=== PATIENT | female | born 1945 | race Hispanic/Latino ===

== ENCOUNTER 2018-03-28 17:20 | Observation (INO) | payer MEDICARE ==
[2018-03-28 17:31] VITALS: BMI 35.4
[2018-03-28] MEDS ORDERED: Sodium Chloride 0.9% 1,000 ML IV SCH (17:45)
--- NOTE | 2018-03-28 17:56 | CT ---
PROCEDURE: CT HEAD WITHOUT CONTRAST. HISTORY: Code Stroke COMPARISON: None available. TECHNIQUE: Axial computed tomography images were obtained through the head/brain without intravenous contrast. Radiation dose: Total exam DLP = 852.48 mGy-cm. This CT exam was performed using one or more of the following dose reduction techniques: Automated exposure control, adjustment of the mA and/or kV according to patient size, and/or use of iterative reconstruction technique. FINDINGS: HEMORRHAGE: No intracranial hemorrhage. BRAIN: Good corticomedullary differentiation is seen. Diffuse expansion of the ventriculosulcal and cisternal spaces is appreciated with white matter lucency compatible with diffuse cerebral atrophy and chronic microangiopathy. No suspicious extra-axial fluid collection is identified and the midline brain anatomy appears grossly nonfocal as imaged. There is no mass effect throughout. VENTRICLES: Unremarkable. No hydrocephalus. CALVARIUM: Unremarkable. PARANASAL SINUSES: Unremarkable as visualized. No significant inflammatory changes. MASTOID AIR CELLS: Unremarkable as visualized. No inflammatory changes. OTHER FINDINGS: None. IMPRESSION: Age related neuro degenerative changes are appreciated which appear age-appropriate at this time. No acute intracranial findings by standard CT criteria. Follow-up CT or MRI are advised as clinically warranted. Findings discussed Dr. Johnson on 03/28/2018, 5:52 p.m. with written down and read back verification.
[2018-03-28 18:02] LABS: BASO # 0.01 K/mm3 (0.0-2.0); BASO % 0.2 % (0.0-3.0); EOS % 0.6 % (1.5-5.0); GRAN % 61.7 % (50.0-68.0); HEMOGLOBIN 13.7 g/dL (12.0-16.0); LYMPH % 30.4 % (22.0-35.0); MEAN CELL VOLUME 87.1 fl (80.0-105.0); MEAN CORPUSCULAR HEMOGLOBIN 29.9 pg (25.0-35.0); MEAN CORPUSCULAR HGB CONC 34.3 g/dl (31.0-37.0); MEAN PLATELET VOLUME 9.7 fl (7.0-11.0); MONO # 0.5 (0.1-0.6); MONO % 7.1 % (1.0-6.0); RBC 4.58 10^6/uL (3.5-6.1); RED CELL DISTRIBUTION WIDTH 12.9 % (11.5-14.5); WHITE BLOOD COUNT 6.5 10^3/ul (4.5-11.0)
[2018-03-28 18:09] LABS: ALB/GLOB RATIO 1.4 (1.1-1.8); ALBUMIN 4.5 g/dL (3.0-4.8); ALT/SGPT 20 U/L (7-56); AST/SGOT 24 U/L (14-36); BLOOD UREA NITROGEN 18 mg/dL (7-21); CALCIUM 11.2 mg/dL (8.4-10.5); GFR AFRICAN-AMERICAN > 60; GFR NON-AFRICAN AMERICAN > 60; HDL CHOLESTEROL 61 mg/dL (29-60)
[2018-03-28 18:10] LABS: INR 0.96 (0.93-1.08); PARTIAL THROMBOPLASTIN TIME 28.5 Seconds (25.1-36.5); PROTHROMBIN TIME 10.9 SECONDS (9.4-12.5)
[2018-03-28 18:20] LABS: LDL CHOLESTEROL 133 mg/dL (0-129)
[2018-03-28 18:23] LABS: TROPONIN I < 0.01 ng/mL
--- NOTE | 2018-03-28 21:07 | ED PDOC ---
Arrival/HPI - General Chief Complaint: Weakness/Neurological Deficit Time Seen by Provider: 03/28/18 17:30 Historian: Patient - History of Present Illness Narrative History of Present Illness (Text): 03/28/18 17:30 A 72 year old female presents to the emergency department for evaluation of slight slurred speech and tongue and jaw numbness. Patient reported to have noticed slight slurred of speech at 16:00 this afternoon. Patient had a hard time finding her words. Patient noticed tongue and jaw were numb. Patient with residual numbness of tongue and jaw in the emergency department. Patient denies any chest pain, shortness of breath, fever, chills, cough, weakness in extremities or any other complaints at this time. Symptom Onset: Sudden Symptom Course: Unchanged Activities at Onset: Rest Context: Home Past Medical History - Provider Review Nursing Documentation Reviewed: Yes - Infectious Disease Hx of Infectious Diseases: None - Neurological Hx Transient Ischemic Attacks (TIA): Yes - Psychiatric Hx Anxiety: Yes Hx Substance Use: No - Anesthesia Hx Anesthesia: No Family/Social History - Physician Review Nursing Documentation Reviewed: Yes Family/Social History: No Known Family HX Smoking Status: Never Smoked Hx Alcohol Use: No Hx Substance Use: No Allergies/Home Meds Allergies/Adverse Reactions: Allergies No Known Allergies Allergy (Verified 03/28/18 17:31) Home Medications: Home Meds Medication Instructions Recorded Confirmed Lorazepam [Ativan] 1 mg PO TID 03/28/18 03/28/18 Mirtazapine [Remeron] 30 mg PO HS 03/28/18 03/28/18 Risperidone [Risperdal] 1 mg PO HS 03/28/18 03/28/18 Review of Systems - Physician Review All systems were reviewed & negative as marked: Yes - Review of Systems Constitutional: absent: Fevers, Other (chills) Respiratory: absent: SOB, Cough Cardiovascular: absent: Chest Pain Physical Exam Vital Signs Reviewed: Yes Vital Signs Temp Pulse Pulse Resp BP Pulse Ox 03/28/18 21:19 98 F 77 18 170/86 H 99 03/28/18 21:10 98.4 F 77 77 18 161/94 H 03/28/18 18:49 98.4 F 77 18 161/94 H 100 03/28/18 18:45 98.5 F 77 18 161/94 H 100 03/28/18 18:30 98.4 F 78 18 146/83 99 03/28/18 18:15 98.4 F 85 18 156/100 H 100 03/28/18 18:00 98.4 F 80 18 151/82 H 100 Temperature: Afebrile Blood Pressure: Normal Pulse: Regular Respiratory Rate: Normal Appearance: Positive for: Well-Appearing, Non-Toxic, Comfortable Pain Distress: None Mental Status: Positive for: Alert and Oriented X 3 Finger Stick Blood Glucose: 99 - Systems Exam Head: Present: Atraumatic, Normocephalic Pupils: Present: PERRL Extroacular Muscles: Present: EOMI Conjunctiva: Present: Normal Mouth: Present: Moist Mucous Membranes Neck: Present: Normal Range of Motion Respiratory/Chest: Present: Clear to Auscultation, Good Air Exchange. No: Respiratory Distress, Accessory Muscle Use Cardiovascular: Present: Regular Rate and Rhythm, Normal S1, S2. No: Murmurs Abdomen: No: Tenderness, Distention, Peritoneal Signs Back: Present: Normal Inspection Upper Extremity: Present: Normal Inspection. No: Cyanosis, Edema Lower Extremity: Present: Normal Inspection. No: Edema Neurological: Present: GCS=15, CN II-XII Intact, Speech Normal Skin: Present: Warm, Dry, Normal Color. No: Rashes Psychiatric: Present: Alert, Oriented x 3, Normal Insight, Normal Concentration Medical Decision Making ED Course and Treatment: 03/28/18 17:30 Impression: A 72 year old female with tongue and jaw numbness. Plan: -- CT head -- EKG -- Chest X-ray -- labs -- IV fluids -- Reassess and disposition Progress Notes: EKG: Ordered, reviewed, and independently interpreted the EKG. Rate : 81 BPM Rhythm : NSR Interpretation : Nornal intervals, normal axis 03/28/18 17:58 CT HEAD WITHOUT CONTRAST Creator : Nura Gonsales MD FINDINGS: HEMORRHAGE: No intracranial hemorrhage. BRAIN: Good corticomedullary differentiation is seen. Diffuse expansion of the ventriculosulcal and cisternal spaces is appreciated with white matter lucency compatible with diffuse cerebral atrophy and chronic microangiopathy. No suspicious extra-axial fluid collection is identified and the midline brain anatomy appears grossly nonfocal as imaged. There is no mass effect throughout. VENTRICLES: Unremarkable. No hydrocephalus. CALVARIUM: Unremarkable. PARANASAL SINUSES: Unremarkable as visualized. No significant inflammatory changes. MASTOID AIR CELLS: Unremarkable as visualized. No inflammatory changes. IMPRESSION: Age related neuro degenerative changes are appreciated which appear age-appropriate at this time. No acute intracranial findings by standard CT criteria. Follow-up CT or MRI are advised as clinically warranted. Findings discussed Dr. Johnson on 03/28/2018, 5:52 p.m. with written down and read back verification. 03/28/18 17:[address] Castellon upon stroke alert to review case. Spoke with Dr. Castellon, who will admit patient to Telemetry. Aspirin 325 was given. 03/28/18 17:35 Code stroke called. - Lab Interpretations Lab Results: 03/28/18 17:40 03/28/18 17:40 Lab Results 03/28/18 17:40: Hemoglobin A1c 5.6 03/28/18 17:40: Sodium 142, Potassium 3.9, Chloride 104, Carbon Dioxide 25, Anion Gap 17, BUN 18, Creatinine 0.8, Est GFR ( Amer) > 60, Est GFR (Non- Af Amer) > 60, Random Glucose 126 H, Calcium 11.2 H, Total Bilirubin 0.4, AST 24 , ALT 20, Alkaline Phosphatase 68, Troponin I < 0.01, Total Protein 7.7, Albumin 4.5, Globulin 3.2, Albumin/Globulin Ratio 1.4, Triglycerides 139, Cholesterol 236 H, LDL Cholesterol Direct 133 H, HDL Cholesterol 61 H 03/28/18 17:40: PT 10.9, INR 0.96, APTT 28.5 03/28/18 17:40: WBC 6.5, RBC 4.58, Hgb 13.7, Hct 39.9, MCV 87.1, MCH 29.9, MCHC 34.3, RDW 12.9, Plt Count 146, MPV 9.7, Gran % 61.7, Lymph % (Auto) 30.4, Coffey % (Auto) 7.1 H, Eos % (Auto) 0.6 L, Baso % (Auto) 0.2, Gran # 4.00, Lymph # ( Auto) 2.0, Coffey # (Auto) 0.5, Eos # (Auto) 0.0, Baso # (Auto) 0.01 03/28/18 17:35: Blood Type A POSITIVE, Antibody Screen Negative, BBK History Checked No verified bt I have reviewed the lab results: Yes - RAD Interpretation Radiology Orders: 03/28/18 17:34 HEAD W/O (CODE STROKE) [CT] Stat CHEST PORTABLE [RAD] Stat - EKG Interpretation Interpreted by ED Physician: Yes Type: 12 lead EKG - Medication Orders Current Medication Orders: Sodium Chloride (Sodium Chloride 0.45%) 1,000 mls @ 40 mls/hr IV .Q24H AGUILA Insulin Human Regular (Humulin R Low) 0 units SC ACHS AGUILA PRN Reason: Protocol Lorazepam (Ativan) 1 mg PO TID AGUILA PRN Reason: Protocol Mirtazapine (Remeron) 30 mg PO HS AGUILA Risperidone (Risperdal Tab) 1 mg PO HS AGUILA PRN Reason: Protocol Discontinued Medications Amlodipine Besylate (Norvasc) 5 mg PO STAT STA Stop: 03/28/18 21:30 Aspirin (Aspirin) 325 mg PO STAT STA Stop: 03/28/18 18:55 Last Admin: 03/28/18 19:00 Dose: 325 mg Sodium Chloride (Sodium Chloride 0.9%) 1,000 mls @ 100 mls/hr IV .Q10H AGUILA Last Admin: 03/28/18 18:00 Dose: 100 mls/hr eMAR Start Stop Document 03/28/18 18:00 LA (Rec: 03/28/18 18:19 LA [id number]) Intravenous Solution Start Date 03/28/18 Start Time 18:00 Pneumococcal Polyvalent Vaccine (Pneumovax 23 Vaccine) 0.5 ml IM .ONCE ONE Stop: 03/28/18 21:42 NIHSS Scale ([place]) Time Performed: 17:35 - How Severe is the Stoke Baseline Level of Consciousness: 0=Alert LOC to Questions: 0=Both comments correct LOC to commands: 0=Obeys both correctly Best Gaze: 0=Normal Visual: 0=No visual loss Facial: 1=Minor asymmetry Motor Arm - Left: 0=No drift Motor Arm - Right: 0=No drift Motor Leg - Left: 0=No drift Motor Leg - Right: 0=No drift Limb Ataxia: 0=Absent Sensory: 1=Mild to moderate loss Best Language: 0=No aphasia Dysarthia: 0=Normal articulation Extinction & Inattention (Neglect): 0=Normal, no object Score: 2 Risk Level: Minor Stroke Risk rTPA Inclusion/Exclusion - Refusal of Treatment Patient Refused Treatment: No - Inclusion Criteria for Altepase Patient is 18 years or Older: Yes The Clinical Diagnosis of Ischemic Stroke That is Causing a Potentially Disabling Neurological Deficit: No Time of Onset is Well Established to be Less Than 270 Minute Before Treatment Would Begin: Yes Risk/Benefit Discussed With Patient/Family Member Present: Yes - Warning to TPA With Conditions Condition: Stroke Serevity Too Mild, Rapid Improvement - Scribe Statement The provider has reviewed the documentation as recorded by the Joseph Stover Provider Scribe Attestation: All medical record entries made by the Joseph were at my direction and personally dictated by me. I have reviewed the chart and agree that the record accurately reflects my personal performance of the history, physical exam, medical decision making, and the department course for this patient. I have also personally directed, reviewed, and agree with the discharge instructions and disposition. Disposition/Present on Arrival - Present on Arrival Any Indicators Present on Arrival: No History of DVT/PE: No History of Uncontrolled Diabetes: No Urinary Catheter: No History of Decub. Ulcer: No History Surgical Site Infection Following: None - Disposition Have Diagnosis and Disposition been Completed?: Yes Diagnosis: TIA (transient ischemic attack) Disposition: HOSPITALIZED Disposition Time: 18:30 Condition: GUARDED ED Critical Care Documentation - Critical Care Total Time (mins): 60 Documented critical care: time excludes all time spent performing seperately billable procedures.
[2018-03-28] MEDS ORDERED: Sodium Chloride 0.45% 1,000 ML IV SCH (21:30)
[2018-03-28] MEDS ORDERED: Pneumococcal 23-Valent Vaccine IM ONE (21:41)
[2018-03-28] MEDS: Insulin Reg-LOW-Coverage SC SCH (22:52)
[2018-03-29 06:47] VITALS: BP 137/68; RESP 20; TEMP 97.7; O2SAT 95
[2018-03-29 07:21] LABS: HEMOGLOBIN 12.1 g/dL (12.0-16.0); MEAN CORPUSCULAR HEMOGLOBIN 29.1 pg (25.0-35.0); MEAN CORPUSCULAR HGB CONC 33.1 g/dl (31.0-37.0); MEAN PLATELET VOLUME 9.8 fl (7.0-11.0); RBC 4.16 10^6/uL (3.5-6.1); RED CELL DISTRIBUTION WIDTH 13.1 % (11.5-14.5); WHITE BLOOD COUNT 4.7 10^3/ul (4.5-11.0)
[2018-03-29 07:36] LABS: ALBUMIN 3.7 g/dL (3.0-4.8); BLOOD UREA NITROGEN 15 mg/dL (7-21); CALCIUM 10.3 mg/dL (8.4-10.5); GFR AFRICAN-AMERICAN > 60; GFR NON-AFRICAN AMERICAN > 60
[2018-03-29 07:37] LABS: ALB/GLOB RATIO 1.3 (1.1-1.8); ALT/SGPT 22 U/L (7-56); AST/SGOT 24 U/L (14-36)
--- NOTE | 2018-03-29 08:09 | CP.PCM.CON ---
History of Present Illness - History of Present Illness History of Present Illness: Neuro Consult note for Dr. Castellno 72yo female PMHx TIA 8 years ago, hyperlipidemia, depression, and anxiety presents to [facility] ED with complained of slurred speech and inability to speak for 2 hours. Patient reports she was at home and around 4pm she noticed she was unable to speak well. She also had associated pins and needles in her hands and feet and felt generally weak. She denied any LOC, trauma, fall, hitting her head , convulsions, farhana vu/strange smell prior to the episode. She reported when she came to the ER her symptoms had resolved although she still felt tired. Patient reports she had had a similar episode before 8-9 years ago where she could only see through the "middle of her eyes" and was unable to see anything in her periphery. She had an associated excruciating headache with this and the episode last 10 minutes on the day and the next day. Patient went to see an opthamologist who immediately sent her to [facility] where she was worked up and deemed to have a "mini stroke" and "plaques in her neck." Patient was started on plavix which she took for 7 years and discontinued last year and she was prescribed a statin but stopped taking it because of her nerves. This morning patient was seen and examined at bedside. Nursing reported no acute events overnight. She reported her speech was back to baseline and she was eating breakfast this AM. Patient denied acute complaints of headache, dizziness, blurry vision, ringing of the ears, chest pain, palpitations, SOB, cough, abd pain, nausea, vomiting, bowel/bladder complaints, pain/swelling in her legs bilaterally. She continues to complain of some paresthesias in her hands b/l but overall feels better. PMHx: TIA 8 years ago, HLD noncompliant with meds, depression, and anxiety PSurgHx: hysterectomy at 31 yo Meds: pls see chart ALL: sulfa drugs FamHx: mother had a "massive CVA" at 83yo and breast ca; sister has ovarian ca SocHx: denies tobacco use, EtOH, drug use; lives with daughter's family and ambulates independently; retired but used to work in [employer] Review of Systems - Review of Systems All systems: reviewed and no additional remarkable complaints except Review of Systems: as per HPI Past Patient History - Infectious Disease Hx of Infectious Diseases: None - Past Social History Smoking Status: Never Smoked - CARDIAC Hx Cardiac Disorders: Yes Hx Hypercholesterolemia: Yes Other/Comment: abnormal ekg had stress test negative 2017 - PULMONARY Hx Respiratory Disorders: No - NEUROLOGICAL Hx Transient Ischemic Attacks (TIA): Yes - HEENT Hx HEENT Problems: No - HEMATOLOGICAL/ONCOLOGICAL Hx Hepatitis A: Yes - INTEGUMENTARY Hx Dermatological Problems: No - MUSCULOSKELETAL/RHEUMATOLOGICAL Hx Musculoskeletal Disorders: Yes Hx Arthritis: Yes (knees) Hx Falls: No - GASTROINTESTINAL Hx Gastrointestinal Disorders: Yes (obese) Hx Diverticulitis: Yes - GENITOURINARY/GYNECOLOGICAL Hx Urinary Tract Infection: Yes - PSYCHIATRIC Hx Anxiety: Yes Hx Substance Use: No - SURGICAL HISTORY Hx Surgeries: No - ANESTHESIA Hx Anesthesia: No Meds Allergies/Adverse Reactions: Allergies Allergy/AdvReac Type Severity Reaction Status Date / Time No Known Allergies Allergy Verified 03/28/18 17:31 - Medications Medications: Current Medications Sodium Chloride (Sodium Chloride 0.45%) 1,000 mls @ 40 mls/hr IV .Q24H AGUILA Last Admin: 03/28/18 23:28 Dose: 40 mls/hr Insulin Human Regular (Humulin R Low) 0 units SC ACHS AGUILA PRN Reason: Protocol Last Admin: 03/28/18 22:52 Dose: Not Given Lorazepam (Ativan) 1 mg PO TID AGUILA PRN Reason: Protocol Mirtazapine (Remeron) 30 mg PO HS AGUILA Last Admin: 03/28/18 22:52 Dose: 30 mg Risperidone (Risperdal Tab) 1 mg PO HS AGUILA PRN Reason: Protocol Last Admin: 03/28/18 22:52 Dose: 1 mg Physical Exam - Constitutional Appears: Non-toxic, No Acute Distress - Head Exam Head Exam: ATRAUMATIC, NORMAL INSPECTION, NORMOCEPHALIC - Eye Exam Eye Exam: EOMI, Normal appearance, PERRL. absent: Conjunctival injection, Scleral icterus Pupil Exam: NORMAL ACCOMODATION - ENT Exam ENT Exam: Mucous Membranes Moist - Respiratory Exam Respiratory Exam: NORMAL BREATHING PATTERN. absent: Accessory Muscle Use, Respiratory Distress - Cardiovascular Exam Cardiovascular Exam: +S1, +S2 - Rectal Exam Rectal Exam: Deferred - Extremities Exam Extremities exam: Positive for: normal capillary refill, normal inspection, pedal pulses present. Negative for: pedal edema, tenderness - Neurological Exam Neurological exam: Alert, CN II-XII Intact, Oriented x3 - Expanded Neurological Exam Expanded Neurological exam: Protecting the Airway Patient oriented to: person, place, time Speech: Fluid Speech Cranial nerves: EOM's Intact: Normal, Facial Palsey w/Forehead Movement: Normal , Facial Palsey w/o Forehead Movement: Normal, Facial Sensation: Normal, Gag Reflex: Normal, Nystagmus: Normal, Tongue Deviation: Normal Cerebellar Function: Finger to Nose: Normal, Heel to Bolden: Normal Upper motor neuron: Babinski Sign: Normal, Eddi Neglect: Normal, Pronator Drift : Normal, Sensory Extinction: Normal Neuro motor strength exam: Left Upper Extremity: 5, Right Upper Extremity: 4, Left Lower Extremity: 5, Right Lower Extremity: 5 Coma Scale Eye Opening: SPONTANEOUS Coma Scale Motor Response: OBEYS COMMANDS Coma Scale Verbal: Oriented Coma Scale Total: 15 - Psychiatric Exam Psychiatric exam: Normal Affect, Normal Mood - Skin Skin Exam: Dry, Intact, Normal Color, Warm Results - Vital Signs Recent Vital Signs: Last Vital Signs Temp 97.7 F 03/29/18 06:00 Pulse 78 03/29/18 06:00 Resp 20 03/29/18 06:00 BP 137/68 03/29/18 06:00 Pulse Ox 95 03/29/18 06:00 - Labs Result Diagrams: 03/29/18 07:00 03/29/18 07:00 Labs: Laboratory Results - last 24 hr 03/28/18 03/28/18 03/29/18 19:20 22:43 07:00 WBC 4.7 D RBC 4.16 Hgb 12.1 Hct 36.6 MCV 88.0 MCH 29.1 MCHC 33.1 RDW 13.1 Plt Count 133 MPV 9.8 Sodium Potassium Chloride Carbon Dioxide Anion Gap BUN Creatinine Est GFR ( Amer) Est GFR (Non-Af Amer) POC Glucose (mg/dL) 98 Random Glucose Calcium Total Bilirubin AST ALT Alkaline Phosphatase Total Protein Albumin Globulin Albumin/Globulin Ratio Blood Type Confirm A POSITIVE 03/29/18 07:00 WBC RBC Hgb Hct MCV MCH MCHC RDW Plt Count MPV Sodium 145 Potassium 3.9 Chloride 106 Carbon Dioxide 26 Anion Gap 16 BUN 15 Creatinine 0.7 Est GFR ( Amer) > 60 Est GFR (Non-Af Amer) > 60 POC Glucose (mg/dL) Random Glucose 94 Calcium 10.3 Total Bilirubin 0.5 AST 24 ALT 22 Alkaline Phosphatase 58 Total Protein 6.5 Albumin 3.7 Globulin 2.8 Albumin/Globulin Ratio 1.3 Blood Type Confirm Assessment & Plan - Assessment and Plan (Free Text) Assessment: 72yo female PMHx TIA 8 years ago, hyperlipidemia, depression, and anxiety presents to [facility] ED with complained of slurred speech and inability to speak for 2 hours. Code Stroke called in the ED and patient was admitted to [facility]. Plan: -Head CT: age related neurodegenerative changes appreciated which are age appropriate at this time. No acute intracranial findings. -CTA head/neck: unremarkable -MRI brain: unremarkable -Lipid panel elevated - start patient on Lipitor 40mg po hs -ASA 81mg po qd -maintain euglycemia, normothermia, normotension -PT -HHD -continue management as per primary medical team -patient to have an Echo with bubble study outpatient -upon discharge patient to follow up with Dr. Castellon in clinic within 7 days of discharge. Discussed with Dr. Ravinder Duran PGY2
--- NOTE | 2018-03-29 08:12 | RAD ---
HISTORY: Code Stroke COMPARISON: No prior. FINDINGS: LUNGS: No active pulmonary disease. PLEURA: No significant pleural effusion identified, no pneumothorax apparent. CARDIOVASCULAR: Normal. OSSEOUS STRUCTURES: No significant abnormalities. VISUALIZED UPPER ABDOMEN: Normal. OTHER FINDINGS: None. IMPRESSION: No active disease.
[2018-03-29] MEDS: Insulin Reg-LOW-Coverage SC SCH ×3 (08:15→16:33)
--- NOTE | 2018-03-29 09:11 | HP ---
DATE OF EXAM: 03/28/2018 HISTORY OF PRESENT ILLNESS: I was called down to the emergency room this evening to see Rosy; she is a 72-year-old white female presents with slurred speech, numbness in the tongue, joint numbness, also arms are numb. First time this happened to her and she got worried and came to the emergency room. It was a sudden onset and sudden change. PAST MEDICAL HISTORY: She does have a past medical history of TIA and anxiety. FAMILY HISTORY: No known family history. SOCIAL HISTORY: Never smoked. No alcohol. No drugs. ALLERGIES: NO KNOWN DRUG ALLERGIES. MEDICATIONS: She takes Ativan, Remeron, and Risperdal for her psychological issues and anxiety. REVIEW OF SYSTEMS: No vision changes. No hearing changes. The tongue is numb. No sore throat. Neck is okay. No headaches. No dizziness. The arms are numb. No chest pain or palpitations or shortness of breath or cough. No abdominal pain, nausea, vomiting, constipation, diarrhea. No problems with the skin that she knows of. PHYSICAL EXAMINATION: GENERAL: She is well appearing, nontoxic, comfortable at this time. Alert and oriented x3. VITAL SIGNS: She has a 98.4 temperature, 78 pulse, 18 respiratory rate, 146/82 blood pressure. The blood pressure was as high as 156/100, so she is having some high blood pressure here which she did not mention to me; and 100% O2 sat. She might have high blood pressure, but then her blood pressure came down to 151/82. HEENT: Head is atraumatic, normocephalic. Extraocular muscles are intact. Pupils are equal and reactive to light. Throat is moist. She can move her tongue in all motions. NECK: Supple. No JVD. Thyroid is midline. No palpable appreciable lymphadenopathy. HEART: Regular rate. Normal S1, S2. LUNGS: Clear to auscultation bilaterally. No wheezes, no rhonchi, no rales. ABDOMEN: Soft, nontender. Positive bowel sounds. Obese. No guarding, no rebound, no CVA tenderness. SKIN: For the most part, the skin is intact. No rashes or ulcers are appreciated from what I can tell. No edema of the extremities. NEUROLOGICAL: GCS is 15. Cranial nerves II through XII grossly intact. Normal speech. Tongue midline. She tells me the tongue is numb and the hands were numb; they are getting better. No droop in the face skin is warm and dry. Alert and oriented x3. LABORATORY DATA: She had some tests done. CAT scan of the head showed old stuff, nothing acute. Labs: Sodium 142, potassium 3.9, BUN 18, creatinine 0.8, GFR is greater than 60, sugar is 126. She has high blood sugars; she does not say anything about that. Her calcium is 11.2, which is high. Hemoglobin A1c was 5.6, total bili is 0.4, AST is 24, ALT is 20, alk phos 68. Troponin-I is less than 0.01. Total protein 7.7, albumin is 4.5, globulin is 3.2, triglycerides are 139, cholesterol is 236, a little high. INR is 0.96. White count 6.5, hemoglobin 13.7, hematocrit 39.9, platelets 146. IMPRESSION AND PLAN: So, she will be here overnight in observation status. She will have a consult with Neurology. We will check an MRI tomorrow morning, labs tomorrow morning, physical therapy, diet. We will watch her blood pressure, check her blood sugars. This is a history and physical on Rosy Gordon who has possible transient ischemic attack with numbness and tingling in the tongue and arms, high blood sugar, high calcium, and hypertension. Tristan Castellon DO MTDD
--- NOTE | 2018-03-29 09:17 | CARD ---
APPROVED REPORT EKG Measurement Heart [id number] HI [id number] <Conclusion> Sinus rhythm with short HI Left axis deviation Moderate voltage criteria for LVH, may be normal variant Abnormal ECG
--- NOTE | 2018-03-29 09:51 | CT ---
PROCEDURE: CT Angiography of the neck with contrast HISTORY: tia COMPARISON: None available. TECHNIQUE: Contiguous axial images of the neck were obtained from the level of the skull-base to the superior mediastinum in the arteriographic phase of enhancement. Coronal and sagittal reformats or also generated. IV contrast dose: 150 cc of Omni 350 Radiation Dose - DLP: 442 mGy-cm This CT exam was performed using one or more of the following dose reduction techniques: Automated exposure control, adjustment of the mA and/or kV according to patient size, and/or use of iterative reconstruction technique. FINDINGS: RIGHT CAROTID ARTERIES: Unremarkable LEFT CAROTID ARTERIES: There is a mild stenosis of the left internal carotid at its origin. This is best seen on sagittal image 51 series 605 VERTEBRAL ARTERIES: Right Vertebral Artery: Normal. Left Vertebral Artery: Normal. OTHER FINDINGS: None. IMPRESSION: Mild stenosis at the origin of the left internal carotid CT Angiography of the Brain. HISTORY: tia COMPARISON: None available. TECHNIQUE: CT angiography of the intracranial arteries was performed. Coronal and sagittal maximum intensity projection reformated images were generated. This CT exam was performed using one or more of the following dose reduction techniques: Automated exposure control, adjustment of the mA and/or kV according to patient size, and/or use of iterative reconstruction technique. FINDINGS: INTERNAL CEREBRAL ARTERIES: Unremarkable. The skull base, petrous, cavernous and supraclinoid segments are bilaterally widely patent. ANTERIOR CEREBRAL ARTERIES: Unremarkable. A1 and A2 segments are widely patent. Smaller distal branches unremarkable, as visualized. MIDDLE CEREBRAL ARTERIES: Unremarkable. M1 and M2 segments are widely patent. Perisylvian branches grossly symmetric. POSTERIOR CIRCULATION: Basilar Artery: Unremarkable. Distal Vertebral Arteries: Unremarkable. Posterior Cerebral Arteries: Unremarkable. Posterior Inferior Cerebellar Arteries: Unremarkable. ANEURYSM/ VASCULAR MALFORMATIONS: None. OTHER FINDINGS: None. IMPRESSION: Unremarkable CT Angiography of the Brain.
--- NOTE | 2018-03-29 11:33 | MRI ---
PROCEDURE: MRI BRAIN WITHOUT CONTRAST HISTORY: tia?? COMPARISON: None. TECHNIQUE: Multiplanar, multisequence MR images of the brain were obtained without intravenous contrast enhancement. FINDINGS: HEMORRHAGE: None DWI: No evidence of an acute or early subacute infarction. BRAIN PARENCHYMA: No mass effect or edema. Mild microvascular changes are seen in the periventricular white matter. There are no acute intracranial findings VENTRICLES: Unremarkable. No hydrocephalus. CRANIUM: Unremarkable. ORBITS: Grossly unremarkable. PARANASAL SINUSES/MASTOIDS: Clear VASCULAR SYSTEM: Skull base flow voids intact. OTHER FINDINGS: None. IMPRESSION: No acute intracranial findings
[2018-03-29 14:24] VITALS: PULSE 77
--- NOTE | 2018-03-29 17:09 | CON ---
DATE: HISTORY OF PRESENT ILLNESS: This is a 72-year-old white female with past medical history of TIA, anxiety, came with the complaint of slurred speech, numbness in the tongue and also numbness in the arm. Patient got worried, called her daughter, could not speak, felt sudden change, brought to the hospital for further workup. SOCIAL HISTORY: Does not smoke. Does not drink. ALLERGIES: NO KNOWN DRUG ALLERGIES. MEDICATIONS: Patient is on Ativan, Remeron and Risperdal. REVIEW OF SYSTEMS: A 10-point review of systems was negative. PHYSICAL EXAMINATION: HEENT: Normocephalic, atraumatic. NECK: Supple. NEUROLOGIC: Alert, awake, oriented to x3. No aphasia. Cranial nerves II through XI are tested. Pupils reactive. EOM intact. Visual castellanos full. No facial asymmetry. Tongue midline. Motor examination: Moves all the extremities spontaneously. Deep tendon reflexes 1+. Both plantars are downgoing. Sensory appears intact. Cerebellar gait deferred. IMPRESSION: Possible transient ischemic attack. MRI of the head was done, which was reported negative. Patient is eating and drinking okay, and workup in progress. Continue present management. We will follow up. Colton Person MD
--- NOTE | 2018-03-30 08:26 | DS ---
HISTORY OF PRESENT ILLNESS: I saw her last night in the emergency room. She came in with some numbness and TIA kind of symptoms this morning. She is doing much better. The arms are better. a little bit of tongue tingling, but not as bad as it was, it is slowly resolving. She is comfortable. She is walking around. She is going to get an MRI of the brain this morning. She is currently on aspirin, Ativan, insulin coverage, Remeron, Risperdal, and IV fluids. PHYSICAL EXAMINATION: VITAL SIGNS: She has 97.7 temperature, 78 pulse, 137/68 blood pressure, 20 respiratory rate, 95% O2 saturation on room air. HEENT: Head is atraumatic, normocephalic. Tongue is midline. Extraocular muscles are intact. For the most part, she is neurologically intact. HEART: Regular rate. LUNGS: Decreased breath sounds,but clear. ABDOMEN: Soft. EXTREMITIES: No edema. LABORATORY DATA: She had some blood tests done, 4.7 white count, 12.1 hemoglobin, 36.6 hematocrit with 133 platelets. She has 145 sodium, potassium 3.9, BUN 16, creatinine 0.7, GFR is greater than 60, sugar is 90, calcium is 10.3. Total bilirubin is 0.5, AST is 24, ALT 22, alkaline phosphatase is 58, total protein is 6.5. ASSESSMENT AND PLAN: She is comfortable. She is doing better. She is improving, waiting for Neurology to see her and the MRI of the brain. I am hoping to discharge her later today after lunch if I get the okay from Neurology if the MRI is normal. She will continue to take a baby aspirin a day in the future. Tristan Castellon DO [facility]
== END 2018-03-29 18:38 | disposition home or self-care (01) ==
LOC: ED 17:20 → ERH 18:52 → 2RSO 22:20
PROVIDERS: ADMIT Family Medicine; ATTEND Family Medicine
DX: G45.9 Transient cerebral ischemic attack, unspecified (principal); E78.00 Pure hypercholesterolemia, unspecified; E78.5 Hyperlipidemia, unspecified; Z86.73 Personal history of transient ischemic attack (TIA), and cerebral infarction without residual deficits; Z80.3 Family history of malignant neoplasm of breast; Z80.41 Family history of malignant neoplasm of ovary; Z82.3 Family history of stroke; Z87.440 Personal history of urinary (tract) infections; Z90.710 Acquired absence of both cervix and uterus; Z91.14 Patient's other noncompliance with medication regimen
CPT/HCPCS: 36415; 70450; 70496; 70498; 70551; 71045; 80053; 80061; 82948; 83036; 84484; 85025; 85027; 85610; 85730; 86850; 86900; 93005; 97116; 97162; 99285; G0378; G8978; G8979; G8980; J7030; J7040; Q9967